=== PATIENT | female | born 1955 | race Caucasian/White ===

== ENCOUNTER 2021-02-16 08:17 | Inpatient (IN) | payer OTHER ==
[~2021-02-16] VITALS: Ht 170.2 cm; Wt 59.0 kg
[2021-02-16 08:24] VITALS: BP 126/45
[2021-02-16] MEDS ORDERED: DESYREL150 MG PO ×2 (08:27→08:29)
[2021-02-16] MEDS ORDERED: SERTRALINE HCL100 MG PO (08:28)
[2021-02-16] MEDS ORDERED: RESTASIS1 EACH OPHTHALMIC (08:29)
[2021-02-16] MEDS ORDERED: CYCLOBENZAPRINE5 MG PO (08:29)
[2021-02-16 08:37] LABS: ABSOLUTE LYMPHOCYTES 4.5 thou/uL (0.8-5.3); ABSOLUTE MONOCYTES 0.7 thou/uL (0.0-1.2); ABSOLUTE NEUTROPHILS 3.9 thou/uL (1.6-8.1); BASOPHILS 0.5 %; EOSINOPHILS 0.4 %; HEMATOCRIT 38.4 % (37.0-47.0); HEMOGLOBIN 12.9 gm/dL (12.0-15.0); MCH 30.9 pg (26.0-34.0); MCHC 33.5 g/dL (28.0-37.0); MCV 92.1 fL (80.0-100.0); MONOCYTES 7.9 %; MPV 8.1 fl. (7.2-11.1); NUCLEATED RBCS 0 /100WBC; PLATELET COUNT* 354 thou/uL (150-400); POLYS 42.2 %; RBC 4.17 mil/uL (4.20-5.00); RDW-CV 13.2 % (10.5-14.5); WBC 9.2 thou/uL (4.0-11.0)
[2021-02-16 08:48] LABS: CALCIUM 9.2 mg/dL (8.5-10.1); POTASSIUM 3.6 mmol/L (3.5-5.1)
[2021-02-16 08:59] LABS: ALBUMIN 4.2 g/dL (3.4-5.0); TOTAL BILIRUBIN 0.4 mg/dL (<0.1-1.0); TOTAL PROTEIN 7.8 g/dL (6.4-8.2)
[2021-02-16 10:30] VITALS: BP 124/56
[2021-02-16 11:36] LABS: URINE BILIRUBIN NEGATIVE (Negative); URINE BLOOD TRACE (Negative); URINE CLARITY CLEAR; URINE COLOR STRAW; URINE GLUCOSE-RANDOM NEGATIVE (Negative); URINE KETONES 1+ (Negative); URINE LEUKOCYTES-REFLEX TRACE (Negative); URINE NITRITE-REFLEX NEGATIVE (Negative); URINE PROTEIN NEGATIVE (Negative); URINE UROBILINOGEN 0.2 E.U./dl (0.2-1.0)
[2021-02-16 12:03] LABS: BACTERIA-REFLEX None Seen /HPF (None Seen); CASTS None Seen /LPF (None Seen); CRYSTALS None Seen /LPF (None Seen); SQUAMOUS 0-3 Few /LPF (0-3); URINE RBC 0-2 Rare /HPF (0-2); URINE WBC-REFLEX 0-5 Rare /HPF (0-5)
[2021-02-16 12:07] VITALS: BP 91/46
[2021-02-16 12:18] VITALS: BP 91/46
[2021-02-16 15:01] VITALS: BP 91/46
--- NOTE | 2021-02-16 15:24 | NUR ---
PT DISCHARGED HOME WITH ALL BELONGINGS ACCOMPANIED BY . SALINE LOCK REMOVED HUB INTACT. PT DENIED ANY PAIN OR DIZZINESS UPON DISCHARGE. PT AMBULATED OFF THE UNIT WITH AND CERTIFIED MIDWIFE.
--- NOTE | 2021-02-16 15:43 | EKG ---
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 : 1955 Requested By: Hayden Covarrubias Order Number: [id number] MD: Coleman Barreto Measurements Intervals [place] Rate: 53 P: 57 WA: 125 QRS: 51 QRSD: 113 T: 49 QT: 478 QTc: 449 Interpretive Statements Sinus rhythm Ventricular trigeminy Borderline intraventricular conduction delay Borderline ST depression, diffuse leads Baseline wander in lead(s) II,III,aVF No previous ECG available for comparison Electronically Signed On 02-16-2021 15:43:17 CDT by Coleman Barreto [email or web address] <ELECTRONICALLY SIGNED> By: Coleman Barreto MD, FACC 02/16/21 1543 4 4 Coleman Barreto MD, FAC /EPI
--- NOTE | 2021-02-17 08:56 | CON ---
[address] [address] CONSULTATION Name: JADE BLEVINS Room: [address] ..#: [id number] Admission: 02/16/21 Attend Phys: Alyssa Moser MD Discharge: 02/16/21 Date of : 59 Report #: [id number] THIS REPORT FOR: cc: Everette Hassan MD, Todd A. MD Liston, Michael J. MD [facility] ~ DATE OF CONSULTATION: 02/16/2021 CARDIOLOGY CONSULT INDICATION: Dizziness, bradycardia. HISTORY OF PRESENT ILLNESS: The patient is a very pleasant 65-year-old white female. She has a history of benign asymptomatic PVCs. She was evaluated in 2016 and told at that time that she had no cardiac abnormality. The patient presents this morning with typical vertigo. The vertigo has since resolved. A 12-lead EKG shows sinus rhythm with PVCs in a pattern of trigeminy. She is without other cardiac complaint at this time. PAST MEDICAL HISTORY: 1. PVC. 2. Hypertension. 3. Anxiety. 4. Depression. HOME MEDICATIONS: Sertraline, cyclobenzaprine, cyclosporine ophthalmic drops, trazodone. ALLERGIES: None. SOCIAL HISTORY: The patient does not smoke. She does not drink alcohol. FAMILY HISTORY: Noncontributory. PHYSICAL EXAMINATION: VITAL SIGNS: Blood pressure 124/56, pulse 66 with occasional irregularity. GENERAL: This is a pleasant lady in no distress. Mood and affect appropriate. HEENT: The patient is wearing glasses. Extraocular muscles intact. Mucous membranes are moist. NECK: Shows no jugular venous distention. CHEST: Reveals clear lung hughes without wheezes or rales. CARDIAC: Reveals a regular rhythm without gallop or murmur. ABDOMEN: Reveals normal bowel sounds and soft, nontender. EXTREMITIES: Shows no edema. Peripheral pulses 2+ and easily palpable. SKIN: [place] [address] CONSULTATION Name: JADE BLEVINS Room: [address]#: [id number] Admission: 02/16/21 Attend Phys: Alyssa Moser MD Discharge: 02/16/21 Date of : 59 Report #: [id number] DIAGNOSTIC DATA: A 12-lead EKG shows sinus rhythm with PVCs in a pattern of trigeminy. LABORATORY DATA: Reviewed and unremarkable. Chest x-ray is normal. CT head is normal. IMPRESSION AND RECOMMENDATIONS: 1. Vertigo. No specific treatment. 2. Benign premature ventricular contractions. No specific treatment. From a cardiac standpoint, the patient appears to be stable for discharge. <ELECTRONICALLY SIGNED> By: Cloeman Barreto MD, [facility] 02/17/21 0856 [id number] [id number] Monty Barreto MD, FACC /nt
== END 2021-02-16 15:25 | disposition home or self-care (01) | DRG 310 ==
LOC: M.ERS 08:17 → M.TBA-ER 09:28 → M.2W 10:40
PROVIDERS: Family Medicine; ADMIT Internal Medicine; ATTEND Internal Medicine
DX: R00.1 Bradycardia, unspecified (principal); I10 Essential (primary) hypertension; F41.9 Anxiety disorder, unspecified; F32.9 Major depressive disorder, single episode, unspecified; Z20.822 Contact with and (suspected) exposure to COVID-19; Z79.899 Other long term (current) drug therapy